=== PATIENT | female | born 1975 | race Caucasian/White ===

== ENCOUNTER 2021-06-27 11:08 | Outpatient (CLI) | payer BC, MEDICAID, SELFPAY ==
--- NOTE | 2021-06-27 11:21 | MM_ITS ---
WS: [id number] VIEWS: MLO and CC views both breasts. 3D digital tomosynthesis is also included in this exam. Comparison made with prior exam of 07/15/2018. Findings: There was no sign of mass, architectural distortion or suspicious calcification in either breast. Sta ble appearing nodular densities in both breasts.Scattered fibroglandular densities MM/[place] [id number] Impression: BI-RADS: 2-Benign FOLLOW-UP: 1 Year Follow-up This mammogram was also analyzed by the Computer Aided Detection System R2 Imag e Entry Level Project Coordinator.
== END 2021-06-27 11:09 | disposition home or self-care (01) ==
LOC: RADSHAW 11:12
PROVIDERS: Visit Provider Family Medicine
DX: Z12.31 Encounter for screening mammogram for malignant neoplasm of breast (principal)
CPT/HCPCS: 77063; 77067

== ENCOUNTER → 2021-09-30 13:34 | Outpatient (BNVA) | payer BC, MEDICAID, SELFPAY | PROVIDERS: Referring Provider Family Medicine; Visit Provider Specialist | DX: G43.711 Chronic migraine without aura, intractable, with status migrainosus (principal); R55 Syncope and collapse | CPT/HCPCS: 99204 ==

== ENCOUNTER → 2021-10-22 14:52 | Outpatient (BNVA) | payer BC, MEDICAID, SELFPAY | PROVIDERS: PCP Family Medicine; Visit Provider Specialist | DX: R55 Syncope and collapse (principal); G43.711 Chronic migraine without aura, intractable, with status migrainosus | CPT/HCPCS: 95816; 96372 ==

== ENCOUNTER 2021-12-04 07:39 | Outpatient (CLI) | payer BC, MEDICAID, SELFPAY ==
--- NOTE | 2021-12-04 08:00 | MR_ITS ---
WS: [id number] MRI BRAIN WITHOUT CONTRAST HISTORY: G43.711 - Chronic migraine without aura, intractable,, migraines and blackouts. COMPARISON: None available. TECHNIQUE: Diffusion imaging, multiplanar T1, T2 and FLAIR imaging obtained. No evidence for acute infarct or hemorrhage. Gupta-white matter differentiation is normal. No subcorti alicia T2 white matter lesions in the frontal lobes that would indicate history of migraines. No prior i schemic disease or infarct. No remote or acute infarcts are volume loss. Ventricles and extra-axial spaces are normal. No inferior displacement of cerebellar tonsils. The sella turcica and pituitary gland are unremarkabl e. Dural venous sinuses and [place] demonstrate no abnormality on this unenhanced studies. Paranasal sinuses: Very minimal mucoperiosteal thickening in the frontal, ethmoid and maxillary sinus es. 10 mm mucous retention cyst in the RIGHT maxillary sinus. Mastoid air cells: Normal. Calvarium and scalp: Intact. MR/MR head wo con* [id number] IMPRESSION: 1. No evidence for an acute infarct, hemorrhage or mass effect. 2. Normal MRI brain.
== END 2021-12-04 07:40 | disposition home or self-care (01) ==
LOC: RAD 07:40
PROVIDERS: PCP Family Medicine; Visit Provider Specialist
DX: G43.711 Chronic migraine without aura, intractable, with status migrainosus (principal); R56.9 Unspecified convulsions
CPT/HCPCS: 70551

== ENCOUNTER 2022-05-13 07:30 | Day surgery (SDC) | payer BC, MEDICAID, SELFPAY ==
[2022-05-12 13:32] VITALS: BMI 38.0
[2022-05-13 08:00] VITALS: BP 142/82; PULSE 74; RESP 16; TEMP 36.5; O2SAT 96
[2022-05-13] MEDS: sodium chloride 0.9% 1,000 ML 30 ML IV (08:04)
--- NOTE | 2022-05-13 08:44 | ANES.PREANE2 ---
Pre-Anesthetic Assessment Height/Weight: Height 1.68 m Weight 107.048 kg Temp Pulse Resp BP Pulse Ox O2 Del Method 97.7 F 74 16 142/82 96 05/13/22 08:00 05/13/22 08:00 05/13/22 08:00 05/13/22 08:00 05/13/22 08:00 05/13/22 08:00 Preop Diagnosis: GERD, screening Operation Date: 05/13/22 09:30 Proposed Procedures p 55349 egd, [address] colon K21.9,R19.7 , R10.9(Not Applicable) - DO harleen White Colonoscopy(Not Applicable) - Ebenezer Christensen DO Familial anesthetic complications: none Was Beta Isi taken within 24 hours: N/A Was Clonidine taken within 24 hours: N/A Last intake: Intake Last Liquid Date 05/12/22 Last Liquid Time 23:30 Last Solid Date 05/11/22 Last Solid Time 17:00 Last Intake: 23:30 Social Tobacco (1ppd) and No alcohol 1ppd pack(s) per day 30+ pack years Exam alert, oriented x 3, clear to auscultation bilaterally and regular rate & rhythm Airway Submandibular: within normal limits Cervical ROM: within normal limits Mallampati: Class I Dentition: false (upper, lower) Pulmonary Asthma (inhailer used monthly) and Chronic Obstructive Pulmonary Disease CV/HEM Hypertension None reported Hepatic None reported GI Gastroesophageal Reflux Disease (controlled) Metabolic Morbid Obesity Musc/skel Lower Back Pain Neuropsych Headache and Syncope (last was 8 months ago) Anesthetic Plan ASA status: 3 Anesthesia: MAC Risk of > 500 ml blood loss (7ml/kg in children): No Medications/Allergies Home Medications Medication Instructions Recorded Confirmed Last Taken Type garlic 1,000 mg capsule 1,000 mg PO DAILY 09/30/21 05/13/22 05/10/22 History lovastatin 40 mg tablet 40 mg PO DAILY 09/30/21 05/13/22 1 Week Ago History ~05/04/22 omega-3 fatty acids 500 mg capsule 500 mg PO DAILY 09/30/21 05/13/22 05/10/22 History theophylline 300 mg 150 mg PO Q12H 09/30/21 05/13/22 05/12/22 History tablet,extended release,12 hr diphenhydramine HCl 25 mg tablet 25 mg PO TID PRN Allergic Symptoms 11/20/21 05/13/22 05/08/22 History (Allergy) pantoprazole 40 mg tablet,delayed 40 mg PO BID 6 weeks #84 tabs 04/28/22 05/13/22 05/12/22 Rx release (Protonix) hydrocortisone 2.5 % topical cream 1 applic SC QID 10 days #30 grams 05/13/22 Unknown Rx with perineal applicator (Anusol-HC) Allergies Allergy/AdvReac Type Severity Reaction Status Date / Time Sulfa (Sulfonamide Allergy Intermediate Unknown Verified 05/13/22 07:48 Antibiotics) omeprazole [From Prilosec] Allergy red Verified 05/13/22 07:48 blotching on skin Current Medications Generic Name Dose Route Start Last Admin Trade Name Freq PRN Reason Stop Dose Admin Sodium Chloride 1,000 mls @ 30 mls/hr 05/13/22 07:45 05/13/22 08:04 Sodium Chloride 0.9% IV 05/14/22 07:44 30 mls/hr .Q24H CHINMAY Administration PFSH Anesthesia Medical History Asthma Hearing loss Herniated disc Surgical History H/O shoulder surgery History of esophagogastroduodenoscopy (EGD) Hx of cholecystectomy Hx of colonoscopy 22 yrs Hx of hysterectomy Family History Father Diabetes Stroke Mother Stroke Cancer Social History Smoking and tobacco status: never smoked Alcohol intake: never Data Anesthesia Cardiac Studies: No Data to Display
--- NOTE | 2022-05-13 09:58 | W.PM.OPSUD ---
Surgery/Procedure H&P Update DATE OF PROCEDURE: May 13, 2022 DATE H&P PERFORMED: 04/28/22 H&P UPDATE INFORMATION: I have reviewed H&P completed within last 30 days, I have examined patient prior to procedure and No changes to prior documentation PREOP DIAGNOSIS: GERD, screening PLANNED PROCEDURE: Operation Date: 05/13/22 09:30 Proposed Procedures p 12161 egd, 25942 colon K21.9,R19.7 , R10.9(Not Applicable) - DO harleen White Colonoscopy(Not Applicable) - Ebenezer Christensen DO
[2022-05-13 10:27] VITALS: BP 102/54; PULSE 65; RESP 16; TEMP 36.5; O2SAT 97
[2022-05-13 10:35] VITALS: BP 106/44; PULSE 67; RESP 16; O2SAT 98
[2022-05-13 10:45] VITALS: BP 107/66; PULSE 64; RESP 16; O2SAT 99
--- NOTE | 2022-05-13 12:57 | ANE.PACU2 ---
Inpatient post-anesthesia follow up: Airway intact: Yes Vital signs: Temperature 97.7 F Pulse Rate 64 Respiratory Rate 16 Blood Pressure 107/66 Pulse Oximetry 99 Oxygen Delivery Me thod Room Air Oxygen Flow Rate 2 Fraction of Inspir ed Oxygen Hydration adequate: Yes Nausea and vomiting: No Pain level: 2 Mental status: Baseline
== END 2022-05-13 11:00 | disposition home or self-care (01) ==
PROVIDERS: PCP Family Medicine; Visit Provider Surgery
PROC: 0DJ08ZZ Inspection of Upper Intestinal Tract, Via Natural or Artificial Opening Endoscopic (ICD-10-PCS; CPT 43235; principal; 2022-05-13 09:30)
PROC: 0DJD8ZZ Inspection of Lower Intestinal Tract, Via Natural or Artificial Opening Endoscopic (ICD-10-PCS; CPT 45378; 2022-05-13 09:30)
DX: Z12.11 Encounter for screening for malignant neoplasm of colon (principal); K21.9 Gastro-esophageal reflux disease without esophagitis; K64.8 Other hemorrhoids; K29.80 Duodenitis without bleeding; F17.210 Nicotine dependence, cigarettes, uncomplicated; J44.9 Chronic obstructive pulmonary disease, unspecified; I10 Essential (primary) hypertension; E66.01 Morbid (severe) obesity due to excess calories; Z68.38 Body mass index [BMI] 38.0-38.9, adult
CPT/HCPCS: 43239; 45380; 82274; 83630; 87493; 87506; 88305; J2704; J7030

== ENCOUNTER 2022-07-15 11:39 | Outpatient (CLI) | payer BC, MEDICAID, SELFPAY ==
--- NOTE | 2022-07-15 11:50 | MM_ITS ---
WS: [id number] Bilateral screening 3D tomosynthesis digital mammogram, 07/15/2022 Clinical Data: SCREENING Comparison: 06/27/2021, 07/15/2018, 05/31/2018. Findings: The breast parenchymal pattern shows fibroglandular tissue. No spiculated masses or clustered calcifi cations are seen. There are no secondary signs of carcinoma. There are mole markers on both breasts. MM/[place] [id number] Impression: 1. Negative bilateral mammogram unchanged. 2. Recommend annual screening mammograms. BIRADS: 1-Negative FOLLOW UP: 1 Year Follow-up The CAD calibration checker was used.
== END 2022-07-15 11:40 | disposition home or self-care (01) ==
LOC: RAD 11:45
PROVIDERS: PCP Family Medicine; Visit Provider Family Medicine
DX: Z12.31 Encounter for screening mammogram for malignant neoplasm of breast (principal)
CPT/HCPCS: 77063; 77067

== ENCOUNTER 2022-11-18 10:24 | Outpatient (CLI) | payer BC, MEDICAID, SELFPAY ==
--- NOTE | 2022-11-18 10:30 | CT_ITS ---
WS: [id number] LDCT LUNG CANCER SCREENING TECHNIQUE: Noncontrast CT of the chest with coronal and sagittal reformatted images. CLINICAL INFORMATION: Z77.22 - Contact with and (suspected) exposure to environ... COMPARISON: None. DLP: 99.79 mGy.cm DIvol: Mean CTDIvol: 2.20 (mGy) All CT scans at [facility] use at least one of these dose optimization techniques: automat ed exposure control; mA and/or kV adjustment per patient size (includes targeted exams where dose is matched to clinical indication); or iterative reconstruction. FINDINGS: No mediastinal or hilar lymphadenopathy. Normal caliber thoracic aorta. Cholecystectomy clips. Normal GE junction. Adrenal glands are normal. Lungs are well aerated. No suspicious pulmonary parenchymal opacities. No other suspicious findings. IMPRESSION: CT/CT lung screening [id number] LUNG-RADS: 1-Negative FOLLOW UP: 12 Month: Continue annual screening with LDCT
== END 2022-11-18 10:25 | disposition home or self-care (01) ==
LOC: RAD 10:25
PROVIDERS: PCP Family Medicine; Visit Provider Specialist
DX: Z12.2 Encounter for screening for malignant neoplasm of respiratory organs (principal); Z77.22 Contact with and (suspected) exposure to environmental tobacco smoke (acute) (chronic); F17.210 Nicotine dependence, cigarettes, uncomplicated
CPT/HCPCS: 71271

== ENCOUNTER → 2023-03-16 13:52 | Outpatient (BNVA) | payer BC, MEDICAID, SELFPAY | PROVIDERS: PCP Family Medicine; Visit Provider Specialist | DX: G43.711 Chronic migraine without aura, intractable, with status migrainosus (principal); M54.81 Occipital neuralgia; F41.9 Anxiety disorder, unspecified; R55 Syncope and collapse; F17.200 Nicotine dependence, unspecified, uncomplicated | CPT/HCPCS: 80053; 84439; 84443; 85025 ==

== ENCOUNTER 2023-03-24 13:06 | Outpatient (CLI) | payer BC, MEDICAID, SELFPAY ==
--- NOTE | 2023-03-24 14:30 | MR_ITS ---
WS: [id number] MRA ANGIOGRAPHY [place] OF [place] HISTORY: G43.711 - Chronic migraine without aura, intractable, COMPARISON: None available. TECHNIQUE: 3-D MR angiography is performed of the three affiliated [facility] [place]. All images are reviewed including source images. Distal vertebral and basilar arteries are intact with no significant stenosis or plaque. Posterior ce rebral arteries are normal course and caliber. Posterior communicating arteries are both patent. Intracranial portion of the internal carotid arteries are normal course and caliber. No significant a therosclerosis, stenosis or aneurysm identified. Middle and anterior cerebral arteries are both paten t with no significant disease. Anterior communicating artery is also normal. IMPRESSION: Normal MRA three affiliated of [place].
== END 2023-03-24 13:07 | disposition home or self-care (01) ==
LOC: RAD 13:06
PROVIDERS: PCP Family Medicine; Visit Provider Specialist
DX: G43.711 Chronic migraine without aura, intractable, with status migrainosus (principal)
CPT/HCPCS: 70544

== ENCOUNTER 2023-04-07 07:35 | Outpatient (CLI) | payer BC, MEDICAID, SELFPAY ==
[2023-04-07 07:48] VITALS: PULSE 75; RESP 18; O2SAT 98
[2023-04-07 08:03] VITALS: PULSE 82
[2023-04-07] MEDS: albuterol 2.5 mg/3 mL Neb INHALATION (08:28)
== END 2023-04-07 07:36 | disposition home or self-care (01) ==
LOC: RT 07:35
PROVIDERS: PCP Family Medicine; Visit Provider Family Medicine
DX: J44.9 Chronic obstructive pulmonary disease, unspecified (principal); F17.210 Nicotine dependence, cigarettes, uncomplicated; R94.2 Abnormal results of pulmonary function studies
CPT/HCPCS: 80053; 84439; 84443; 85025; 94060; 94726; 94729; J7613

== ENCOUNTER → 2023-06-14 15:28 | Outpatient (BNVA) | payer BC, MEDICAID, SELFPAY | PROVIDERS: PCP Family Medicine; Referring Provider Family Medicine; Visit Provider Internal Medicine Pulmonary Disease | DX: R06.02 Shortness of breath (principal) | CPT/HCPCS: 36415; 82785; 86003 ==

== ENCOUNTER 2023-08-16 09:59 | Outpatient (CLI) | payer BC, MEDICAID, SELFPAY ==
--- NOTE | 2023-08-16 10:11 | MM_ITS ---
WS: [id number] BILATERAL SCREENING DIGITAL TOMOSYNTHESIS MAMMOGRAM WITH CAD HISTORY: SCREENING COMPARISON: 07/15/2022, 06/27/2021 and 07/15/2018 Bilateral CC and MLO views with tomosynthesis and synthetic mammography submitted. Computer aided det ection analyzed. Breast composition: There are scattered areas of fibroglandular density. No suspicious masses, microc alcifications or architectural distortion. Benign 5 mm mass in the central LEFT breast has been prese nt on prior exams. MM/[place] [id number] IMPRESSION: BI-RADS: 2-Benign FOLLOW UP: 1 Year Follow-up
== END 2023-08-16 10:00 | disposition home or self-care (01) ==
LOC: RAD 09:59
PROVIDERS: PCP Family Medicine; Visit Provider Family Medicine
DX: Z12.31 Encounter for screening mammogram for malignant neoplasm of breast (principal); R92.323 Mammographic fibroglandular density, bilateral breasts; D24.2 Benign neoplasm of left breast
CPT/HCPCS: 77063; 77067

== ENCOUNTER 2023-10-06 14:39 | Outpatient (CLI) | payer BC, MEDICAID, SELFPAY | END 2023-10-06 14:40 | disposition home or self-care (01) | LOC: SLEEP 14:41 | PROVIDERS: PCP Family Medicine; Visit Provider Internal Medicine Pulmonary Disease | DX: G47.33 Obstructive sleep apnea (adult) (pediatric) (principal) | CPT/HCPCS: G0399 ==

== ENCOUNTER → 2023-10-07 09:35 | Outpatient (BNVA) | payer BC, MEDICAID, SELFPAY | PROVIDERS: PCP Family Medicine; Visit Provider Nurse Practitioner Family | DX: E78.5 Hyperlipidemia, unspecified; R53.83 Other fatigue; Z79.899 Other long term (current) drug therapy | CPT/HCPCS: 80053; 80061; 80198; 85025 ==

== ENCOUNTER → 2023-11-09 08:44 | Outpatient (BNVA) | payer BC, MEDICAID, SELFPAY | PROVIDERS: PCP Family Medicine | DX: R19.7 Diarrhea, unspecified (principal) | CPT/HCPCS: 87045; 87427; 87449 ==

== ENCOUNTER 2023-11-12 05:31 | Emergency (ER) | payer BC, MEDICAID, SELFPAY ==
[2023-11-12 05:46] VITALS: BP 141/83; PULSE 80; RESP 16; TEMP 37; O2SAT 97; BMI 36.3
--- NOTE | 2023-11-12 05:56 | W.ED.FEVER ---
HPI - Fever General: Chief Complaint: Fever Stated Complaint: couph,Fever Time Seen by Provider: 11/12/23 05:53 History of Present Illness: 48-year-old female presents emergency room with cough for the last week with fever. Cough has had mildly productive clear sputum. No hemoptysis. She also has had some diarrhea. 2 months ago she had a laparoscopic Ramo fundoplication. She has been wearing a wide elastic band across her abdomen the last few days concerned about protecting the hiatal hernia. She has not had any hematochezia with diarrhea. Patient is not diabetic no history of hypertension does have a history of COPD Associated symptoms: Deny abdominal pain, chills, chest pain or dysuria Related Data Home Medications Medication Instructions Recorded Confirmed garlic 1,000 mg capsule 1,000 mg PO DAILY 09/30/21 11/08/23 omega-3 fatty acids 500 mg capsule 500 mg PO DAILY 09/30/21 11/08/23 diphenhydramine HCl 25 mg tablet 25 mg PO TID PRN Allergic Symptoms 11/20/21 11/08/23 (Allergy) CBD Oil PO 03/24/23 11/08/23 famotidine 40 mg PO BEDTIME 03/24/23 11/08/23 hydrocodone 5 mg-acetaminophen 325 1 tab PO Q4H PRN 10/07/23 11/08/23 mg tablet ondansetron HCl 4 mg tablet 4 mg PO Q6H 10/07/23 11/08/23 promethazine 25 mg tablet 25 mg PO Q6H PRN 10/07/23 11/08/23 Previous Rx's Medication Instructions Recorded fremanezumab-vfrm 225 mg/1.5 mL 225 mg (1.5 mL) SUBCUT ONCE #1.5 mL 07/05/23 subcutaneous auto-injector (Ajovy) tizanidine 4 mg tablet 4 mg PO BID PRN muscle spasticity 08/31/23 #60 tabs fluticasone propionate 50 1 spray intranasal DAILY PRN nasal 10/07/23 mcg/actuation nasal congestion #16 grams spray,suspension lovastatin 40 mg tablet 40 mg PO DAILY #90 tabs 10/07/23 theophylline 300 mg 300 mg PO Q12H #60 tabs 10/07/23 tablet,extended release,12 hr albuterol sulfate 90 mcg/actuation 2 puff inhalation Q6H PRN 10/12/23 aerosol inhaler (Ventolin HFA) shortness of breath or wheezing #6.7 grams amoxicillin 875 mg-potassium 1 tab PO Q12H #10 tabs 11/09/23 clavulanate 125 mg tablet albuterol sulfate 90 mcg/actuation 2 inh inhalation Q4H PRN shortness 11/12/23 aerosol inhaler of breath or wheezing #18 grams Allergies Allergy/AdvReac Type Severity Reaction Status Date / Time Sulfa (Sulfonamide Allergy Intermediate Unknown Verified 11/08/23 10:39 Antibiotics) egg Allergy Unknown Verified 11/08/23 10:39 omeprazole [From Prilosec] Allergy red Verified 11/08/23 10:39 blotching on skin Review of Systems Const: Reports: fever(s), fatigue and malaise; Denies: chills Card: Denies: chest pain Resp: Reports: dyspnea, productive cough (Clear sputum) and wheezing GI: Denies: abdominal pain : Denies: dysuria, urinary frequency or urinary urgency Musc: Denies: neck pain or back pain Skin/Breast: Denies: rash PFSH ED PFSH: Medical History COPD (chronic obstructive pulmonary disease) Hearing loss Asthma Herniated disc Surgical History H/O shoulder surgery Hx of hysterectomy Hx of cholecystectomy Hx of colonoscopy 20 yrs History of esophagogastroduodenoscopy (EGD) Family History Father Diabetes Stroke Mother Stroke Cancer Social History Smoking and tobacco/nicotine status: unknown if used tobacco/nicotine Alcohol intake: never Substance/Drug Use: never Adopted: No Caregiver/support person: No Lives independently: No Household members: spouse Marital status: Sexually active: Yes Do you think of yourself as: Straight/Heterosexual Current gender identity: Female Physical Exam Const: COMMON NORMALS: no acute distress GENERAL APPEARANCE: cooperative ORIENTATION/CONSCIOUSNESS: Yes awake, Yes oriented to person, Yes oriented to place and Yes oriented to time HENMT: COMMON NORMALS: normocephalic, atraumatic and hearing grossly normal bilaterally HEAD & SCALP: normocephalic and atraumatic Resp: COMMON NORMALS: normal respiratory effort, No retractions, No use of accessory muscles and clear to auscultation bilaterally AUSCULTATION: clear to auscultation bilaterally Cardio: COMMON NORMALS: regular rate, regular rhythm and No murmurs present (Cardio) RATE: regular rate RHYTHM: regular rhythm GI: COMMON NORMALS: Soft to palpation and No hepatosplenomegaly present AUSCULTATION: Yes normoactive bowel sounds PALPATION: Yes Soft to palpation, No Tenderness to palpation present (GI), No Guarding due to palpation present (GI) and Yes No hepatosplenomegaly present Extremity: COMMON NORMALS: normal to inspection, capillary refill normal, no clubbing, cyanosis or edema, no calf tenderness and no pedal edema Neuro: SENSORIUM/ORIENTATION: Yes oriented to person, Yes oriented to place and Yes oriented to time Skin: COMMON NORMALS: no rashes or lesions noted GENERAL SKIN EXAM: no rashes or lesions noted Course Vital Signs: Vital signs: Vital Signs Temperature 98.6 F 11/12/23 05:46 Pulse Rate 80 11/12/23 05:46 Respiratory Rate 16 11/12/23 05:46 Blood Pressure 141/83 11/12/23 05:46 Pulse Oximetry 97 11/12/23 05:46 Oxygen Delivery Me thod Room Air 11/12/23 05:46 MDM - Fever Medical Decision Making Based on symptoms and exam history of cyst correct patient does have COVID COVID PCR is pending. Will discharge patient home she is outside of the window for [employer] she has had symptoms for over 1 week now. Recommend use of albuterol as needed. Supportive cares. Recheck if has worsening symptoms. Continue to wear mask when around others until symptoms have began to decrease and you are 24 hours fever free Lab Data 11/12/23 06:36 11/12/23 06:36 Radiology Impressions Chest X-Ray 11/12/23 05:59 IMPRESSION: No acute findings. Laboratory Results WBC 10.13 10^3/uL (3.29-11.43) 11/12/23 06:36 RBC 3.65 10^6/uL (3.85-5.65) L 11/12/23 06:36 Hgb 11.00 g/dL (11.27-16.99) L 11/12/23 06:36 Hct 33.6 % (36-47) L 11/12/23 06:36 MCV 92.1 fl (85-98) 11/12/23 06:36 MCH 30.1 pg (27-33) 11/12/23 06:36 MCHC 32.7 g/dL (30-55) 11/12/23 06:36 RDW 12.3 % (12.1-15.1) 11/12/23 06:36 Plt Count 232 10^3/cmm (157-399) 11/12/23 06:36 MPV 9.2 fL (7.4-10.4) 11/12/23 06:36 Neut % (Auto) 21.2 % 11/12/23 06:36 Lymph % (Auto) 66.8 % 11/12/23 06:36 [place] % (Auto) 8.2 % 11/12/23 06:36 Eos % (Auto) 2.5 % 11/12/23 06:36 Baso % (Auto) 0.4 % 11/12/23 06:36 Neut # (Auto) 2.15 10^3/uL (1.8-7.7) 11/12/23 06:36 Lymph # (Auto) 6.8 10^3/uL (0.8-4.8) H 11/12/23 06:36 [place] # (Auto) 0.8 10^3/uL (0.2-0.9) 11/12/23 06:36 Eos # (Auto) 0.3 10^3/uL (0.0-0.8) 11/12/23 06:36 Baso # (Auto) 0.0 10^3/uL (0.0-0.1) 11/12/23 06:36 Nucleated RBC % (auto) 0 % 11/12/23 06:36 Nucleated RBCs # 0.0 /100WBC 11/12/23 06:36 Sodium 139 mmol/L (136-145) 11/12/23 06:36 Potassium 3.9 mmol/L (3.5-5.1) 11/12/23 06:36 Chloride 104 mmol/L (98-107) 11/12/23 06:36 Carbon Dioxide 24 mmol/L (22-29) 11/12/23 06:36 Anion Gap 14.9 (5-19) 11/12/23 06:36 BUN 5 mg/dL (6-20) L 11/12/23 06:36 Creatinine 0.6 mg/dL (0.5-0.9) 11/12/23 06:36 GFR Calculation 107.6 mL/min (90-130) 11/12/23 06:36 Glucose 97 mg/dL (65-115) 11/12/23 06:36 Calculated Osmolality 285 mOsm/kg (285-295) 11/12/23 06:36 Calcium 8.8 mg/dL (8.5-10.5) 11/12/23 06:36 Total Bilirubin 0.2 mg/dL (0.15-1.2) 11/12/23 06:36 AST 94 U/L (0-32) H 11/12/23 06:36 ALT 101 U/L (0-33) H 11/12/23 06:36 Alkaline Phosphatase 256 U/L (35-105) H 11/12/23 06:36 Total Protein 7.0 g/dL (6.6-8.7) 11/12/23 06:36 Albumin 3.6 g/dL (3.5-5.2) 11/12/23 06:36 Globulin 3.4 g/dL (1.3-4.6) 11/12/23 06:36 All radiology interpretation(s) finalized by discharge Discharge Plan Discharge Patient Disposition: Home Clinical Impression: Suspected COVID-19 virus infection Condition: Stable Prescriptions: New albuterol sulfate 90 mcg/actuation HFA aerosol inhaler 2 inh INHALATION Q4H PRN (Reason: shortness of breath or wheezing) Qty: 18 0RF No Action garlic 1,000 mg capsule 1,000 mg PO DAILY omega-3 fatty acids 500 mg capsule 500 mg PO DAILY diphenhydramine HCl [Allergy] 25 mg tablet 25 mg PO TID PRN (Reason: Allergic Symptoms) Ajovy Autoinjector 225 mg/1.5 mL auto-injector 225 mg SUBCUT ONCE Qty: 1.5 6RF Rx Instructions: monthly methylprednisolone acetate [Depo-Medrol] 40 mg/mL suspension 40 mg IM ONCE Qty: 1 0RF famotidine 40 mg PO BEDTIME CBD Oil PO hydrocodone-acetaminophen 5-325 mg tablet 1 tab PO Q4H PRN ondansetron HCl 4 mg tablet 4 mg PO Q6H promethazine 25 mg tablet 25 mg PO Q6H PRN fluticasone propionate 50 mcg/actuation spray,suspension 1 spray intranasal DAILY PRN (Reason: nasal congestion) Qty: 16 2RF Rx Instructions: administer into each nostril lovastatin 40 mg tablet 40 mg PO DAILY Qty: 90 1RF theophylline 300 mg tablet extended release 12 hr 300 mg PO Q12H Qty: 60 3RF tizanidine 4 mg tablet 4 mg PO BID PRN (Reason: muscle spasticity) Qty: 60 0RF albuterol sulfate [Ventolin HFA] 90 mcg/actuation HFA aerosol inhaler 2 puff inhalation Q6H PRN (Reason: shortness of breath or wheezing) Qty: 6.7 0RF amoxicillin-pot clavulanate 875-125 mg tablet 1 tab PO Q12H Qty: 10 0RF Discharge Orders: Discharge ED (Routine); Ordered 11/12/23 Ordered By: Devendra Gibson Referrals: Aron Pabon MD [Primary Care Provider] - Discharge Diet: Usual diet Discharge Activity: Increase activity as tolerated Patient Instructions: Opioid Safety, Pain Management, COVID-19 (Coronavirus Disease 2019) (ED) Activity Restrictions/Additional Instructions: Thank you for choosing [facility] for your healthcare needs today. It is very important that you follow up as instructed or that you return to the Emergency Department should you have concerns or if your condition changes or worsens in any way. Coding Level of Care Code ED Wire Products Inspector for Gee Jenkins
--- NOTE | 2023-11-12 05:59 | XRR_ITS ---
PROCEDURE INFORMATION: Exam: XR Chest Exam date and time: 11/12/2023 6:22 AM Age: 48 years old Clinical indication: Cough and dyspnea; Additional info: Dyspnea/cough TECHNIQUE: Imaging protocol: Radiologic exam of the chest. Views: 1 view. COMPARISON: CT lung screening [id number] 11/18/2022 10:43 AM FINDINGS: Lungs: Unremarkable. No consolidation. Pleural spaces: Unremarkable. No pleural effusion. No pneumothorax. Heart/Mediastinum: Unremarkable. No cardiomegaly. Bones/joints: Unremarkable. XR/XR chest 1V portable [id number] IMPRESSION: No acute findings.
[2023-11-12 06:59] LABS: Basophils % 0.4 %; Eosinophils # 0.3 10^3/uL (0.0-0.8); Eosinophils % 2.5 %; Hematocrit 33.6 % (36-47); Lymphocytes # 6.8 10^3/uL (0.8-4.8); Lymphocytes % 66.8 %; Mean Corpuscular HGB Conc 32.7 g/dL (30-55); Mean Corpuscular Hemoglobin 30.1 pg (27-33); Mean Corpuscular Volume 92.1 fl (85-98); Mean Platelet Volume 9.2 fL (7.4-10.4); Monocytes # 0.8 10^3/uL (0.2-0.9); Monocytes % 8.2 %; Neutrophils # 2.15 10^3/uL (1.8-7.7); Neutrophils % 21.2 %; Nucleated Red Blood Cells % 0 %; Platelet Count 232 10^3/cmm (157-399); Red Blood Count 3.65 10^6/uL (3.85-5.65); Red Cell Distribution Width 12.3 % (12.1-15.1); White Blood Count 10.13 10^3/uL (3.29-11.43)
[2023-11-12] MEDS: dexamethasone 10 mg/mL INJ IM (06:59)
[2023-11-12 07:15] LABS: Alanine Aminotransferase 101 U/L (0-33); Albumin Level 3.6 g/dL (3.5-5.2); Alkaline Phosphatase 256 U/L (35-105); Anion Gap 14.9 (5-19); Aspartate Amino Transferase 94 U/L (0-32); Blood Urea Nitrogen 5 mg/dL (6-20); Calcium 8.8 mg/dL (8.5-10.5); Carbon Dioxide 24 mmol/L (22-29); Chloride 104 mmol/L (98-107); Creatinine Clr Calc Pharmacy 141.3105; Globulin 3.4 g/dL (1.3-4.6); Glomerular Filtration Rate 107.6 mL/min (90-130); Glucose 97 mg/dL (65-115); Osmolality Calculated 285 mOsm/kg (285-295); Potassium 3.9 mmol/L (3.5-5.1); Slide Review Slide Review Perform; Sodium 139 mmol/L (136-145); Total Bilirubin 0.2 mg/dL (0.15-1.2)
[2023-11-12 08:15] VITALS: BP 155/92; PULSE 73; O2SAT 98
[2023-11-12 08:18] LABS: Adenovirus Not Detected (NOT DETECT); Chlamydia Pneumoniae Not Detected (NOT DETECT); Coronavirus 229E,HKU1,NL63,OC4 Not Detected (NOT DETECT); Human Metapneumovirus Not Detected (NOT DETECT); Human Rhinovirus/Enterovirus Not Detected (NOT DETECT); Influenza A Not Detected (NOT DETECT); Influenza A H1 Not Detected (NOT DETECT); Influenza A H1-2009 Not Detected (NOT DETECT); Influenza A H3 Not Detected (NOT DETECT); Influenza B Not Detected (NOT DETECT); Mycoplasma Pneumoniae Not Detected (NOT DETECT); Parainfluenza Virus Type 1 Not Detected (NOT DETECT); Parainfluenza Virus Type 2 Not Detected (NOT DETECT); Parainfluenza Virus Type 3 Not Detected (NOT DETECT); Parainfluenza Virus Type 4 Not Detected (NOT DETECT); Respiratory Syncytial Virus A Not Detected (NOT DETECT); Respiratory Syncytial Virus B Not Detected (NOT DETECT); SARS-COV-2 Not Detected (NOT DETECT)
== END 2023-11-12 08:15 | disposition home or self-care (01) ==
PROVIDERS: Emergency Provider Family Medicine; PCP Family Medicine
DX: Z20.822 Contact with and (suspected) exposure to COVID-19 (principal); J44.9 Chronic obstructive pulmonary disease, unspecified
CPT/HCPCS: 36415; 71045; 80053; 85025; 87635; 96372; 99284; J1100

== ENCOUNTER 2023-12-02 12:35 | Outpatient (CLI) | payer BC, MEDICAID, SELFPAY ==
--- NOTE | 2023-12-02 | ECG_ITS ---
[facility] Test Date: 2023-12-02 Pat Name: Chary Angulo Department: Room: Gender: Female Product Safety Officer: : 1975 Requested By: Francheska Richter Order Number: [id number] Reading MD: Interpretive Statements Lung unchanged pre/post procedure; Intraprocedure anxiety, heart palpitation, headache; Symptoms resoled by discharge [email or web address]
--- NOTE | 2023-12-02 13:25 | USCV_ITS ---
Dobutamine Stress Echo Chary Angulo Age: 48 Gender: F : 1975 Exam Date: 12/02/2023 13:48 Ordering Phys: Ricardo Prince M.D ([email or web address]) Technologist: Exam Location: [facility] Indication: R/O UNDERLYING CAD` Rhythm: Sinus Patient History: SMOKER,, HLD, COPD Cardiac Medications: Statin Medications in past 24 hours: NONE Contrast: Total Dose (mL): Stress Results Protocol: Pharmacologic Peak Dose (???g/kg/min): 40 Duration (min:sec): 09:31 Atropine:(mg) 0.5 Target HR: 148 Double Product: [id number] Resting HR: 68 Resting BP: 134 / 86 Peak HR: 160 Peak BP: 152 / 68 Max Predicted HR: 174 92 % Max Predicted HR Stress Summary: The hemodynamic response to stress was normal. BP Response: Normal Reason for Termination: Exceeded target heart rate (85% max predicted), The patients target heart rate was achieved Cardiac Symptoms: None ECG Analysis Resting EKG: Stress EKG: Arrhythmia: MEASUREMENTS (Male/Female) Normal Values FINDINGS Baseline Normal left ventricular cavity size. Normal left ventricular wall thickness. Normal global left ventricular systolic function 60%, no significant wall motion abnormality. At mid and peak dobutamine dose level, Cavity augmentation of the left ventricle was good there was no wall motion abnormality CONCLUSIONS Echocardiographic portion of the dobutamine echocardiogram is negative for ischemia Left ventricular cavity augmentation was good there was no wall motion abnormality EKG portion of the stress test will be documented separately Sarwat Mcdaniels MD (Electronically Signed) Final Date: 03 December 2023 17:43 S
[2023-12-02 13:37] VITALS: BMI 38.6
[2023-12-02] MEDS: DOBUTtamine 200 MG in sodium chloride 0.9% 34 ML 15.31 MG IV (13:55)
[2023-12-02] MEDS: atropine 0.1 mg/mL Syr 10 mL 0.5 MG IVP (14:03)
[2023-12-02] MEDS: metoprolol tartrate 1 mg/1 mL SDV 5 mL 5 MG IVP (14:07)
[2023-12-02 14:40] VITALS: BP 109/61; PULSE 93
== END 2023-12-02 12:36 | disposition home or self-care (01) ==
LOC: CDL 12:36
PROVIDERS: PCP Nurse Practitioner Family; Visit Provider Nurse Practitioner Family
DX: Z82.49 Family history of ischemic heart disease and other diseases of the circulatory system (principal); N23 Unspecified renal colic; R06.02 Shortness of breath; I25.10 Atherosclerotic heart disease of native coronary artery without angina pectoris
CPT/HCPCS: 80053; 80061; 80198; 81000; 85025; 87077; 87086; 87184; 93017; 93350; J0461; J1250; J3490; J7050

== ENCOUNTER → 2023-12-13 11:03 | Outpatient (BNVA) | payer BC, MEDICAID, SELFPAY | PROVIDERS: PCP Nurse Practitioner Family; Visit Provider Nurse Practitioner Family | DX: N30.00 Acute cystitis without hematuria (principal) | CPT/HCPCS: 81000; 87086 ==

== ENCOUNTER → 2024-04-28 12:01 | Outpatient (BNVA) | payer BC, MEDICAID, SELFPAY | PROVIDERS: PCP Nurse Practitioner Family; Visit Provider Nurse Practitioner Family | DX: E78.2 Mixed hyperlipidemia (principal); I10 Essential (primary) hypertension | CPT/HCPCS: 80053; 80061 ==

== ENCOUNTER → 2024-07-17 09:21 | Outpatient (BNVA) | payer BC, MEDICAID, SELFPAY | PROVIDERS: PCP Nurse Practitioner Family; Visit Provider Nurse Practitioner Family | DX: E78.2 Mixed hyperlipidemia (principal) | CPT/HCPCS: 80061 ==

== ENCOUNTER → 2024-08-09 08:51 | Outpatient (BNVA) | payer BC, MEDICAID, SELFPAY | PROVIDERS: PCP Nurse Practitioner Family; Visit Provider Physician Assistant | DX: M67.441 Ganglion, right hand (principal) | CPT/HCPCS: 73130 ==

== ENCOUNTER 2024-09-04 08:54 | Day surgery (SDC) | payer BC, MEDICAID, SELFPAY ==
[2024-09-04] VITALS (9 sets, daily range): BP systolic 102–127; BP diastolic 69–78; PULSE 51–66; RESP 16–18; TEMP 36.1–36.6; O2SAT 97–99; BMI 36.4
--- NOTE | 2024-09-04 09:42 | W.PM.OPSUD ---
Surgery/Procedure H&P Update DATE OF PROCEDURE: September 04, 2024 DATE H&P PERFORMED: 08/09/24 H&P UPDATE INFORMATION: I have reviewed H&P completed within last 30 days, I have examined patient prior to procedure and No changes to prior documentation PREOP DIAGNOSIS: Right thumb mass PRIMARY INDICATION FOR PROCEDURE: Right thumb mass PLANNED PROCEDURE: Operation Date: 09/04/24 10:35 Proposed Procedures p thumb mass excision(Right) - Oscar Casey DO
--- NOTE | 2024-09-04 09:48 | ANES.PREANE2 ---
Pre-Anesthetic Assessment Height/Weight: Height 1.65 m Weight 99.337 kg Temp Pulse Resp BP Pulse Ox O2 Del Method 97.2 F L 66 18 122/72 98 Room Air 09/04/24 09:14 09/04/24 09:14 09/04/24 09:14 09/04/24 09:14 09/04/24 09:14 09/04/24 09:14 Preop Diagnosis: Right thumb mass Operation Date: 09/04/24 10:35 Proposed Procedures p thumb mass excision(Right) - Oscar Casey DO Familial anesthetic complications: Said she woke up during her endoscopy and tried to pull out the tube Was Beta Isi taken within 24 hours: N/A Was Clonidine taken within 24 hours: N/A Last intake: Intake Last Liquid Date 09/03/24 Last Liquid Time 22:00 Last Solid Date 09/03/24 Last Solid Time 18:30 Social Tobacco and No alcohol Exam alert, oriented x 3, clear to auscultation bilaterally and regular rate & rhythm Airway Mallampati: Class II Dentition: other (no teeth) Pulmonary Asthma, Chronic Obstructive Pulmonary Disease and Sleep Apnea GI Gastroesophageal Reflux Disease Metabolic Hyperlipidemia Anesthetic Plan ASA status: 4 Anesthesia: MAC Risk of > 500 ml blood loss (7ml/kg in children): No Medications/Allergies Home Medications ?Medication ?Instructions ?Recorded ?Confirmed ?Last Taken ?Type garlic 1,000 mg capsule 1,000 mg PO DAILY 09/30/21 09/01/24 09/03/24 History omega-3 fatty acids 500 mg capsule 500 mg PO DAILY 09/30/21 09/01/24 09/03/24 History diphenhydramine HCl 25 mg tablet 25 mg PO TID PRN Allergic Symptoms 11/20/21 09/04/24 2 Weeks Ago History (Allergy) ~08/21/24 albuterol sulfate 90 mcg/actuation 2 puff inhalation Q6H PRN 10/12/23 09/01/24 Unknown Rx aerosol inhaler (Ventolin HFA) shortness of breath or wheezing #6.7 grams albuterol sulfate 90 mcg/actuation 2 inh inhalation Q4H PRN shortness 11/12/23 09/04/24 1 Month Ago Rx aerosol inhaler of breath or wheezing #18 grams ~08/04/24 cpap machine #1 ea 12/13/23 08/09/24 Unknown Rx fenofibrate 50 mg capsule 50 mg PO DAILY #90 caps 07/21/24 09/01/24 09/03/24 Rx fluticasone propionate 50 1 spray intranasal DAILY PRN 09/01/24 09/04/24 2 Weeks Ago History mcg/actuation nasal Congestion ~08/21/24 spray,suspension fremanezumab-vfrm 225 mg/1.5 mL 225 mg SUBCUT .MONTHLY 09/01/24 09/01/24 08/31/24 History subcutaneous auto-injector (Ajovy) lovastatin 40 mg tablet 40 mg PO DAILY 09/01/24 09/01/24 09/03/24 History theophylline 300 mg 300 mg PO BID 09/01/24 09/01/24 09/03/24 History tablet,extended release,12 hr Allergies Allergy/AdvReac Type Severity Reaction Status Date / Time Sulfa (Sulfonamide Allergy Intermediate Unknown Verified 09/01/24 11:48 Antibiotics) egg Allergy Unknown Verified 09/01/24 11:48 omeprazole (From Prilosec) Allergy red Verified 09/01/24 11:48 blotching on skin [facility] Medical History COPD (chronic obstructive pulmonary disease) Hearing loss Asthma Herniated disc Surgical History History of hernia repair H/O shoulder surgery Hx of hysterectomy Hx of cholecystectomy Hx of colonoscopy 22 yrs History of esophagogastroduodenoscopy (EGD) Family History Father Diabetes Stroke Mother Stroke Cancer Social History Smoking and tobacco/nicotine status: current every day tobacco/nicotine user (pack a day) cigarettes Packs smoked per day: 1 Years cigarettes smoked: 34 [ Other cigarette details: Started at age 14] Alcohol intake: never Substance/Drug Use: never Adopted: No Caregiver/support person: No Lives independently: No Household members: spouse Marital status: Sexually active: Yes Do you think of yourself as: Straight/Heterosexual Current gender identity: Female Data Anesthesia Cardiac Studies: Stress Echocardiogram 12/02/23
[2024-09-04] MEDS: sodium chloride 0.9% 1,000 ML 30 ML IV (10:05)
[2024-09-04] MEDS: acetaminophen 1,000 MG/100 ML PIGGYBACK 400 MG IV (10:06)
[2024-09-04] MEDS: ketorolac 30 mg/mL INJ IVP (10:08)
[2024-09-04] MEDS: ceFAZolin 2,000 MG in sodium chloride 0.9% (plus) 50 ML 100 MG IV (10:20)
[2024-09-04] MEDS: ROPivacaine 0.5% SDV 30 mL 150 MG INJECTION (10:32)
[2024-09-04] MEDS: lidocaine 1% 10 ML INJ SUBCUT (10:32)
--- NOTE | 2024-09-04 11:01 | P.BOP_ITS ---
Date of Procedure: 09/04/2024 Surgeon: Oscar Casey DO Telecommunications Manager(s): None Procedure(s) performed: Right thumb mass excision Findings of the procedure(s): Patient underwent procedure as planned without issues or complications placed in a thumb spica and taken to recovery in stable condition Estimated blood loss: 5 mL Specimen(s) removed: Right thumb mass excised and sent for specimen Post-operative diagnosis: Right thumb mass
--- NOTE | 2024-09-04 11:17 | P.PCN_ITS ---
PACU note Narrative: Patient is a 49-year-old female that had a right thumb cyst excision. Patient transferred to PACU in stable condition. Pain is well controlled. Splint and dressing on hand is dry and in place. Patient's fingers are warm and well- perfused. Patient can wiggle fingers. normal cap refill under 2 seconds. Patient has normal elbow range of motion. Sensation of fingers intact. Exam: awake Disposition: discharged
--- NOTE | 2024-09-04 12:11 | PM.OP ---
Operative Report Date of procedure: September 04, 2024 Surgeon: Oscar Casey DO Procedure: Preoperative diagnosis: Right thumb mass Postoperative diagnosis: Right volar radial thumb epidermal inclusion cyst Procedure Right?volar radial?Thumb?epidermal inclusion cyst excision (1 cm x 0.5 cm x 0.5 cm) Specimens removed/disposition: Right?volar radial?Thumb?epidermal inclusion cyst excised and sent for pathology Surgeon: Oscar Casey DO Estimated blood loss: 5mL Tourniquet time 8 minutes IV fluids: See anesthesia record Complications: None Findings: See operative report narrative Condition: stable Disposition: same day Brief History: Patient's been worked up in the outpatient setting and findings consistent with preoperative diagnosis.? Patient has a right?volar radial?Thumb? mass.? Patient has attempted conservative treatment and this has become significantly painful.? We talked about treatment options as far as nonoperative and operative intervention.? At this point time patient like a more permanent solution in the lowest chance of recurrence and as result through shared decision making we agreed to proceed with a right?Thumb?mass excision.? Patient understands risk benefits complication alternatives surgical nonsurgical treatment options.? Understanding risk of surgery patient agrees to proceed.? All questions answered.? Consent obtained in the preoperative holding area. Procedure: Patient seen evaluate in the preoperative holding area.? Consent was signed and reviewed with patient.? All questions were answered at that time.? Correct extremity was then marked.? Once seen evaluated by anesthesia patient was then brought back to the operative suite.? Patient was then placed in supine position all bony prominences well-padded patient was properly secured to the bed.? An armboard was then applied for the right upper extremity.? A nonsterile tourniquet was applied to the right upper extremity arm.? Patient then underwent anesthesia per the anesthesia department.? Once appropriately anesthetized the right upper extremity was then prepped and draped in standard orthopedic fashion.? Final timeout performed.? Patient received appropriate preoperative antibiotics. Under sterile aseptic technique I began with local anesthetic for my preplanned surgical site.? Then I utilized an Esmarch tourniquet to exsanguinate the right upper extremity to 250 mmHg Patient had a large soft mobile?mass was identified on the volar and radial aspects of the mid substance of the thenar eminence on the right thumb. At this point in time I made a direct longitudinal incision centering over this soft mobile mass. Sharp scalpel incision was made through skin and subcutaneous tissues were slightly dissection scissors protecting neurovascular structures throughout the procedure. Just immediately underneath the subcutaneous tissue encountered a cyst that in my dissection did rupture and have appearance of an epidermal inclusion cyst. At this point in time I utilized dissection scissors bipolar electrocautery and scalpel to completely excise the right thumb epidermal inclusion cyst to its entirety measuring 1 cm x 0.5 cm x 0.5 cm. This was removed in its entirety no signs of infection no necrotic tissue deep. At this point in time we utilized bipolar electrocautery to cauterize the entirety of the previous wound bed of the cyst with goals of preventing recurrence. The inclusion cyst was then sent for specimen for pathology. I then thoroughly irrigated the wound bed tourniquet was deflated.? Hemostasis was satisfactory with bipolar electrocautery.? I then closed the incision in layered fashion with mattress nylon stitch for skin.? Xeroform over the incisions 4 x 4's ABD soft roll and a thumb spica splint was applied.? Patient was then awakened from anesthesia and taken back in stable condition. Disposition: Patient taken back in stable condition recovering well.? Patient will receive appropriate discharge instructions as well as pain medication postoperatively.? Patient placed in a thumb spica splint.? We will follow-up with in the orthopedic office in 2 weeks.? Patient understands of any questions or concerns and contact the office.
--- NOTE | 2024-09-04 12:15 | ANE.PACU2 ---
Inpatient post-anesthesia follow up: Airway intact: Yes Vital signs: Temperature 97.8 F Pulse Rate 53 Respiratory Rate 18 Blood Pressure 110/75 Pulse Oximetry 99 Oxygen Delivery Me thod Room Air Oxygen Flow Rate Fraction of Inspir ed Oxygen Hydration adequate: Yes Nausea and vomiting: No Pain level: 1 Mental status: Baseline
== END 2024-09-04 12:15 | disposition home or self-care (01) ==
PROVIDERS: PCP Nurse Practitioner Family; Visit Provider Student in an Organized Health Care Education/Training Program
PROC: (CPT 11422; principal; 2024-09-04 10:25)
DX: L72.0 Epidermal cyst (principal); J44.9 Chronic obstructive pulmonary disease, unspecified; G47.30 Sleep apnea, unspecified; K21.9 Gastro-esophageal reflux disease without esophagitis; E78.5 Hyperlipidemia, unspecified; F17.210 Nicotine dependence, cigarettes, uncomplicated
CPT/HCPCS: 11422; 88307; J0131; J0690; J1885; J2250; J2704; J2795; J3010; J7030; J9999

== ENCOUNTER 2024-09-19 11:29 | Outpatient (CLI) | payer BC, MEDICAID, SELFPAY ==
--- NOTE | 2024-09-19 11:33 | MM_ITS ---
WS: [id number] BILATERAL 3D TOMOSYNTHESIS DIGITAL SCREENING MAMMOGRAPHY WITH CAD CLINICAL INFORMATION: SCREENING HISTORY: Screening mammogram. No current complaints. COMPARISON: 2023 TECHNIQUE: Bilateral CC and MLO views. FINDINGS: Scattered fibroglandular densities bilaterally. No suspicious focal mass, asymmetry, calcifications, or architectural distortion. No evidence of malignancy. Incidental calcification LEFT breast MM/MM scr BI tomosynthesis [id number] IMPRESSION: DENSITY: There are scattered areas of fibroglandular density. BI-RADS: 2 - Benign. FOLLOW UP: 1 Year Follow-up Recommend return to annual screening mammography.
== END 2024-09-19 11:30 | disposition home or self-care (01) ==
LOC: RAD 11:29
PROVIDERS: PCP Nurse Practitioner Family; Visit Provider Nurse Practitioner Family
DX: Z12.31 Encounter for screening mammogram for malignant neoplasm of breast (principal); R92.323 Mammographic fibroglandular density, bilateral breasts; R92.1 Mammographic calcification found on diagnostic imaging of breast
CPT/HCPCS: 77063; 77067

== ENCOUNTER → 2024-11-27 10:19 | Outpatient (BNVA) | payer BC, MEDICAID, SELFPAY | PROVIDERS: PCP Nurse Practitioner Family; Visit Provider Nurse Practitioner Family | DX: I10 Essential (primary) hypertension (principal); R53.83 Other fatigue; E78.2 Mixed hyperlipidemia | CPT/HCPCS: 80053; 80061; 85025 ==